=== PATIENT | male | born 1980 | race African-American/Black ===

== ENCOUNTER 2018-01-09 19:35 | Emergency (ER) | payer SELFPAY ==
[~2018-01-09] VITALS: Ht 167.6 cm; Wt 73.2 kg
[~2018-01-09 19:35] MED LIST: HUMIBIDDM PO; ZOFR4TAB3 SL
--- NOTE | 2018-01-09 19:41 | PD ---
HPI Chief Complaint: Intoxication Time Seen by Provider: 19:37 Travel History International Travel<30 days: No Contact w/Intl Traveler<30days: No Traveled to known affect area: No History of Present Illness HPI 37-year-old male was brought in by EMS for intoxication. Patient states that he drank alcohol this afternoon. Patient denies any headache. Patient denies any neck pain. Patient denies any chest pain or shortness of breath. Patient denies abdominal pain. Patient denies any focal weakness or numbness of the extremity. Patient denies any injury. Patient denies any illicit drug abuse. Patient denies any medical problem. Patient stated he is not on any routine medication. PFS Social History Alcohol Use: No Tobacco Use: Yes Allergies-Medications Reported Meds & Prescriptions Reported Meds & Active Scripts Active Mucinex DM (Dextromethorphan-Guaifenesin) 30-600 Mg Tab 2 Tab PO BID PRN 7 Days Zofran Odt (Ondansetron Odt) 4 Mg Tab 4 Mg SL Q6HR PRN Review of Systems General / Constitutional: No: Fever Eyes: No: Visual changes HENT: No: Headaches Cardiovascular: No: Chest Pain or Discomfort Respiratory: No: Shortness of Breath Gastrointestinal: No: Abdominal Pain Genitourinary: No: Dysuria Musculoskeletal: No: Pain Skin: No Rash Neurologic: No: Weakness Psychiatric: No: Depression Endocrine: No: Polydipsia Hematologic/Lymphatic: No: Easy Bruising Physical Exam Narrative GENERAL: Well-nourished, well-developed patient. SKIN: Focused skin assessment warm/dry. HEAD: Normocephalic. EYES: No scleral icterus. No injection or drainage. NECK: Supple, trachea midline. No JVD or lymphadenopathy. CARDIOVASCULAR: Regular rate and rhythm without murmurs, gallops, or rubs. RESPIRATORY: Breath sounds equal bilaterally. No accessory muscle use. GASTROINTESTINAL: Abdomen soft, non-tender, nondistended. MUSCULOSKELETAL: No cyanosis, or edema. BACK: Nontender without obvious deformity. No CVA tenderness. Neurologic exam: Patient is intoxicated however answer questions appropriately. Patient moves all extremity well. No obvious focal neurological deficit. Data Data Last Documented VS Vital Signs Date Time Temp Pulse Resp B/P (MAP) Pulse Ox O2 Delivery O2 Flow Rate FiO2 01/09/18 19:40 100 Room Air 01/09/18 19:40 18 Orders Orders Complete Blood Count With Diff (01/09/18 19:37) Comprehensive Metabolic Panel (01/09/18 19:37) Iv Access Insert/Monitor (01/09/18 19:37) Ecg Monitoring (01/09/18 19:37) Oximetry (01/09/18 19:37) Alcohol (Ethanol) (01/09/18 19:37) Labs Laboratory Tests Test 01/09/18 20:00 White Blood Count 7.3 TH/MM3 Red Blood Count 5.05 MIL/MM3 Hemoglobin 16.4 GM/DL Hematocrit 49.5 % Mean Corpuscular Volume 97.9 FL Mean Corpuscular Hemoglobin 32.5 PG Mean Corpuscular Hemoglobin Concent 33.2 % Red Cell Distribution Width 13.2 % Platelet Count 238 TH/MM3 Mean Platelet Volume 8.1 FL Neutrophils (%) (Auto) 53.7 % Lymphocytes (%) (Auto) 38.1 % Monocytes (%) (Auto) 6.5 % Eosinophils (%) (Auto) 0.6 % Basophils (%) (Auto) 1.1 % Neutrophils # (Auto) 3.9 TH/MM3 Lymphocytes # (Auto) 2.8 TH/MM3 Monocytes # (Auto) 0.5 TH/MM3 Eosinophils # (Auto) 0.0 TH/MM3 Basophils # (Auto) 0.1 TH/MM3 CBC Comment DIFF FINAL Differential Comment Blood Urea Nitrogen 6 MG/DL Creatinine 0.85 MG/DL Random Glucose 72 MG/DL Total Protein 9.0 GM/DL Albumin 4.2 GM/DL Calcium Level 8.8 MG/DL Alkaline Phosphatase 59 U/L Aspartate Amino Transf (AST/SGOT) 44 U/L Alanine Aminotransferase (ALT/SGPT) 30 U/L Total Bilirubin 0.2 MG/DL Sodium Level 141 MEQ/L Potassium Level 3.9 MEQ/L Chloride Level 107 MEQ/L Carbon Dioxide Level 25.1 MEQ/L Anion Gap 9 MEQ/L Estimat Glomerular Filtration Rate 123 ML/MIN Ethyl Alcohol Level 388 MG/DL [facility] Medical Decision Making Medical Screen Exam Complete: Yes Emergency Medical Condition: Yes Interpretation(s) 2043 PM. CBC within normal limits. CMP within normal limits. AST 44. Glucose 72. Alcohol 388. Differential Diagnosis Differential diagnosis including alcohol intoxication, electrolyte imbalance, substance-induced mood disorder. Narrative Course 37-year-old male was brought in for intoxication. 2045 PM. Patient is awake alert oriented 3. Patient steady on his feet. Patient will be discharged to the custody of family members. Diagnosis Primary Impression: Alcohol intoxication Qualified Codes: F10.920 - Alcohol use, unspecified with intoxication, uncomplicated Patient Instructions: General Instructions Additional Instructions: Advised [facility]. Med/Other Pt SpecificInfo: No Meds Exist/No RX given Disposition: 01 DISCHARGE HOME Condition: Stable Shade Maza MD Jan 09, 2018 19:41
[2018-01-09 20:10] LABS: AUTOMATED NEUTROPHIL # 3.9 TH/MM3 (1.8-7.7); BASOPHIL # 0.1 TH/MM3 (0-0.2); BASOPHIL % 1.1 % (0.0-2.0); EOSINOPHIL % 0.6 % (0.0-4.0); HEMATOCRIT 49.5 % (39.0-51.0); HEMOGLOBIN 16.4 GM/DL (13.0-17.0); LYMPH % 38.1 % (9.0-44.0); LYMPHOCYTE # 2.8 TH/MM3 (1.0-4.8); MEAN CELL VOLUME 97.9 FL (80.0-100.0); MEAN CORPUSCULAR HEMOGLOBIN 32.5 PG (27.0-34.0); MEAN CORPUSCULAR HGB CONC 33.2 % (32.0-36.0); MEAN PLATELET VOLUME 8.1 FL (7.0-11.0); MONO % 6.5 % (0.0-8.0); MONOCYTE # 0.5 TH/MM3 (0-0.9); NEUT % 53.7 % (16.0-70.0); PLATELET COUNT 238 TH/MM3 (150-450); RED BLOOD COUNT 5.05 MIL/MM3 (4.50-5.90); RED CELL DISTRIBUTION WIDTH 13.2 % (11.6-17.2); WHITE BLOOD COUNT 7.3 TH/MM3 (4.0-11.0)
[2018-01-09 20:18] LABS: CHLORIDE 107 MEQ/L (98-107); SODIUM (NA) 141 MEQ/L (136-145)
[2018-01-09 20:21] LABS: ALBUMIN 4.2 GM/DL (3.4-5.0); BICARBONATE 25.1 MEQ/L (21.0-32.0); CALCIUM 8.8 MG/DL (8.5-10.1); GLUCOSE,RANDOM 72 MG/DL (74-106)
[2018-01-09 20:22] LABS: BLOOD UREA NITROGEN 6 MG/DL (7-18)
[2018-01-09 20:24] LABS: ALT (GPT) 30 U/L (12-78)
[2018-01-09 20:25] LABS: AST (GOT) 44 U/L (15-37); CREATININE 0.85 MG/DL (0.60-1.30); GLOMERULAR FILTRATION RATE 123 ML/MIN (>89)
[2018-01-09 20:26] LABS: TOTAL BILIRUBIN ADULT 0.2 MG/DL (0.2-1.0)
[2018-01-09 20:27] LABS: ALKALINE PHOSPHATASE 59 U/L (45-117)
[2018-01-09 23:39] VITALS: BP 136/82; PULSE 74; RESP 16; O2SAT 100
[2018-01-10 01:50] VITALS: BP 158/78; PULSE 87; RESP 16; O2SAT 99
[2018-01-10 03:35] VITALS: BP 138/77; PULSE 78; RESP 16
[2018-01-10 05:55] VITALS: BP 142/77; PULSE 78; RESP 16; O2SAT 100
== END 2018-01-10 06:00 | disposition home or self-care (01) ==
LOC: PHED 19:35
DX: F10.920 Alcohol use, unspecified with intoxication, uncomplicated (principal); Y90.8 Blood alcohol level of 240 mg/100 ml or more; Z72.0 Tobacco use
CPT/HCPCS: 80053; 80307; 85025; 99283

== ENCOUNTER 2018-04-05 09:05 | Inpatient (IN) | payer OTHER ==
[~2018-04-05] VITALS: Ht 167.6 cm; Wt 61.0 kg
[~2018-04-05 09:05] MED LIST changes: +NAPR500 PO
[2018-04-05 12:00] VITALS: BP 155/111; PULSE 70; RESP 20; TEMP 98.1; O2SAT 98
[2018-04-05] MEDS ORDERED: BISACODYL 10 MG SUPP RECTAL PRN (12:15)
[2018-04-05] MEDS: MAGNESIUM HYDROXIDE SUSP 30 ML CUP PO SCH ×2 (12:15→20:40)
[2018-04-05] MEDS ORDERED: ENALAPRILAT 1.25 MG/ML VIAL IV PUSH PRN (12:15)
[2018-04-05] MEDS ORDERED: SENNOSIDES 8.6 MG TAB PO PRN (12:15)
[2018-04-05] MEDS ORDERED: LACTULOSE SYRUP 20 GM/30 ML CUP PO PRN (12:15)
[2018-04-05] MEDS ORDERED: ONDANSETRON HCL 4 MG/2 ML VIAL IV PUSH PRN (12:15)
[2018-04-05] MEDS ORDERED: SODIUM CHLORIDE 0.9% FLUSH 10 ML FLUSH IV FLUSH PRN (12:15)
[2018-04-05] MEDS: MORPHINE SULFATE 4 MG/ML INJ IV PUSH PRN ×3 (13:12→22:49)
[2018-04-05] MEDS: SODIUM CHLOR 0.9% 1000 ML INJ 1,000 ML IV SCH ×2 (13:24→20:45)
[2018-04-05] MEDS ORDERED: MORPHINE SULFATE 4 MG/ML INJ IV ONE (14:00)
--- NOTE | 2018-04-05 14:13 | RADRPT ---
EXAM DATE: 04/05/2018 2:02 PM EDT AGE/SEX: 37 years / Male INDICATIONS: Trauma. Severe burning pain bilateral upper extremities. CLINICAL DATA: This is the patient's initial encounter. Patient reports that signs and symptoms have been present for 2 days and indicates a pain score of 3/10. MEDICAL/SURGICAL HISTORY: None. None. COMPARISON: No prior exams available for comparison. TECHNIQUE: Multiplanar, multisequence MRI examination of the cervical spine was performed without co ntrast. FINDINGS: At C2-3 there is no significant abnormality. At C3-4 there is a broad-based posterior disc protrusion with mild to moderate AP canal stenosis and mild cord compression. Mild foraminal stenosis. At C4-5 there is a broad-based disc protrusion, slightly worse on the left side with moderate AP maria g l stenosis, mild cord compression and bilateral foraminal encroachment, worse on the left. At C5-6 there is a disc bulge or mild protrusion effacing the anterior thecal sac with a minimal impr ession on the anterior surface of the cord. At C6-7 there is a broad-based disc protrusion with mild to moderate AP canal stenosis and mild cord compression as well as bilateral foraminal stenosis. At C7-T1 there is no significant abnormality. CONCLUSION: 1. At C3-4-5 and C6-7 there is a broad-based disc protrusion with mild to moderate AP canal stenosis and mild cord compression as well as bilateral foraminal encroachment. No cord signal abnormality. N ormal alignment. Electronically signed by: Daniel Keys MD 04/05/2018 2:12 PM EDT
[2018-04-05] MEDS: GABAPENTIN 300 MG CAP PO SCH ×2 (14:14→18:17)
[2018-04-05 16:00] VITALS: BP 175/100; PULSE 62; RESP 20; TEMP 97.8; O2SAT 100
[2018-04-05] MEDS: ACETAMINOPHEN 1000 MG/100 ML 100 ML IV SCH ×2 (16:06→20:39)
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
[2018-04-05] MEDS: FAMOTIDINE 20 MG TAB PO SCH (20:40)
[2018-04-05] MEDS: AMITRIPTYLINE HCL 25 MG TAB PO SCH (20:40)
[2018-04-05] MEDS: DOCUSATE SODIUM 50 MG/SENNA 8.6 MG TAB PO SCH (20:40)
[2018-04-05 20:44] VITALS: BP 159/95; PULSE 57; RESP 20; TEMP 97.6; O2SAT 97
[2018-04-06] VITALS (7 sets, daily range): BP systolic 147–178; BP diastolic 89–100; PULSE 61–114; RESP 18–20; TEMP 97.7–98.3; O2SAT 94–97
[2018-04-06] MEDS: MORPHINE SULFATE 4 MG/ML INJ IV PUSH PRN ×3 (02:55→17:20)
[2018-04-06] MEDS: ACETAMINOPHEN 1000 MG/100 ML 100 ML IV SCH ×2 (02:55→09:31)
[2018-04-06] MEDS: SODIUM CHLOR 0.9% 1000 ML INJ 1,000 ML IV SCH ×2 (08:04→22:05)
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
[2018-04-06] MEDS: DOCUSATE SODIUM 50 MG/SENNA 8.6 MG TAB PO SCH ×2 (09:27→21:00)
[2018-04-06] MEDS: MAGNESIUM HYDROXIDE SUSP 30 ML CUP PO SCH ×2 (09:27→21:00)
[2018-04-06] MEDS: FAMOTIDINE 20 MG TAB PO SCH ×2 (09:27→22:03)
[2018-04-06] MEDS: GABAPENTIN 300 MG CAP PO SCH ×3 (09:27→22:07)
--- NOTE | 2018-04-06 12:34 | HHI.NSPN ---
(Navneet Kirk) History Chief Complaint: Burning and tingling to forearms and hands, not able to use. (Navneet Kirk) Interval History 04/05: The patient is a 37-year-old male presented to the emergency room in [facility] early this morning following a fall while intoxicated. He reportedly initially complained of neck pain. He was diagnosed with a C7 spinous process and lamina fracture with CT scan head negative. The patient was transferred to general surgery trauma service at [facility]. He continues to complain of burning sensation in his forearms and hands diffuse. 04/06: The patient is awake and alert in bed when seen this afternoon. He complains of a burning and "needles" sensation from the forearms down to the fingertips of both upper extremities. He states it is very painful if something brushes up against the area. He also says he is not able to use the hands to write or do anything. He denies any neck pain or any pain, numbness, tingling or weakness to the lower extremities. Upon examination he has tenderness to the lower midline cervical spine. He has pain to touch of the upper extremities. His proximal upper extremity muscle strength is strong but distal is not tested due to pain to touch. There are no sensorimotor deficits to the lower extremities. He is wearing the [place] cervical collar. He reports that he has been able to void. (Navneet Kirk) Exam Results 04/04/18 04/04/18 04/05/18 04/05/18 04/06/18 04/06/18 06:00 18:00 06:00 18:00 06:00 18:00 Intake Total 400 ml Output Total 300 ml Balance 400 ml -300 ml Intake IV Total 400 ml Output Urine Total 300 ml Bladder Scan Volume Amount 475 ml Vital Signs Date Time Temp Pulse Resp B/P (MAP) Pulse Ox O2 Delivery O2 Flow Rate FiO2 04/06/18 12:03 98.2 70 18 155/97 (116) 95 04/06/18 10:01 18 04/06/18 09:29 17 04/06/18 07:45 97.9 75 18 147/99 (115) 94 04/06/18 05:00 97.8 61 20 169/95 (119) 97 04/06/18 00:45 97.7 77 20 170/89 (116) 96 04/05/18 20:44 97.6 57 20 159/95 (116) 97 04/05/18 16:00 97.8 62 20 175/100 (125) 100 04/05/18 12:00 98.1 70 20 155/111 (126) 98 (Navneet Kirk) Physical Examination GENERAL: Awake & alert in bed. Affect normal. Readily interacts. No apparent distress. Mildly uncomfortable due to pain to BUE. SKIN: Multiple abrasions to face and hands. HEENT: Normocephalic. Right forehead abrasion. Right-sided lip swelling & abrasions. PERRLA, EOMI. No evident otorrhea or rhinorrhea. MMM & pink, tongue midline to protrusion. NECK: In [place] cervical collar. TTP at midline C5 to T1. No JVD. Trachea midline. MUSCULOSKELETAL: HARRINGTON spontaneously & purposefully but decreased ROM to distal BUE. TTP from distal right arm to fingertips and from mid left forearm to fingertips. BLE NTTP. NEUROLOGICAL: AAOx3. Speech clear & appropriate. Follows simple commands w/o difficulty. CN II through XII appear grossly intact. Positive paresthesias and dysesthesia to light touch from distal right arm to fingertips and from mid left forearm to fingertips. Sensation is intact to light touch to the lower extremities. Motor strength is 5/5 to bilateral deltoids, biceps & tricep and to all major flexion & extension muscle groups of the BLE. Unable to assess wrist flexors & extensors or hand intrinsics due to pain when touched. (Navneet Kirk) Lab, Micro, Other Results Recent Impressions Cervical Spine MRI 04/05/18 0000 Signed Impressions: CONCLUSION: 1. At C3-4-5 and C6-7 there is a broad-based disc protrusion with mild to mode rate AP canal stenosis and mild cord compression as well as bilateral foraminal encroachment. No cord signal abnormality. Normal alignment. (Navneet Kirk) Medical Decision Making Impression and Plan Impression: 1. Moderately severe diffuse cervical stenosis, C3 through C7 levels related to chronic degenerative changes 2. Acute cervical cord contusion primarily C3-4 greater than C4-5 level noted on MRI imaging 3. Central cord syndrome 4. Alcohol intoxication Patient is doing fairly well. He continues to have paresthesias and dysesthesia to the upper extremities with decreased use of the distal upper extremities. Since admission: Afebrile. SBP intermittently elevated. Per Dr Dean: "04/05/2018 cervical spine MRI images reviewed. There is moderately severe diffuse stenosis at the C3-4 and C4-5 greater than C5 -6 and C6-7 levels related primarily to significant posterior osteophytic disc complex impinging on the anterior cord. Positive increased signal intensity within the cord at the C3-4 greater than C4- 5 level consistent with contusion. 04/05/2018 CT scan cervical spine images are reviewed and reveal a C7 spinous process fracture extending to the lower lamina, mildly displaced. Moderate posterior osteophytic disc complex throughout the mid cervical spine levels. No evidence of subluxation or instability.. 04/05/2018 CT scan head images are within normal limits without evidence of acute injury." Plan: Neuro checks q4h. [place] cervical collar at all times. Maintain MAP preferably greater than 65. Elevated HOB. Bedrest. Physical & Occupational Therapy eval & tx. Hold pharmacologic DVT prophylaxis. Mechanical DVT prophylaxis. Stress ulcer prophylaxis. Gabapentin & amitriptyline for dysesthetic pain. Plan to take the patient for spinal cord decompression w/probable C3-C7 laminoplasty in order to avoid multilevel fusion in this relatively young patient. BMP & CBC in AM. NPO after midnight tonight. Will accept transfer of patient to Neurosurgery service. (Navneet Kirk) Attending Statement The exam, history, and the medical decision-making described in the above note were completed with the assistance of the mid-level provider. I reviewed and agree with the findings presented. I attest that I had a [id number] encounter with the patient on the same day, and personally performed and documented my assessment and findings in the medical record. The imaging findings were discussed at length with the patient again today. Due to the severity of cord compression and contusion, it is recommended the patient proceed with cervical laminoplasty, decompressive semi-laminectomy. The procedure, risks, possible complications including risk of anesthesia, spinal cord or nerve damage, hematoma formation, failure of instrumentation or fusion of all been fully discussed. I advised him that prognosis for recovery of cervical cord contusion is moderate. He appears to understand all of the above and wishes to proceed with surgery which is tentatively scheduled for 04/07/2018 (Chuck Dean MD) Navneet Kirk Apr 06, 2018 12:34 Chuck Dean MD Apr 07, 2018 13:31
[2018-04-06] MEDS: ACETAMINOPHEN 325 MG TAB PO SCH ×2 (15:15→22:04)
[2018-04-06] MEDS: AMITRIPTYLINE HCL 25 MG TAB PO SCH (22:01)
[2018-04-07] VITALS: BP 154/93; PULSE 69; RESP 18; TEMP 97.8; O2SAT 95
[2018-04-07] MEDS: ACETAMINOPHEN 325 MG TAB PO SCH ×4 (03:00→20:42)
[2018-04-07 04:00] VITALS: BP 139/87; PULSE 73; RESP 18; TEMP 97.7; O2SAT 97
[2018-04-07] MEDS: SODIUM CHLOR 0.9% 1000 ML INJ 1,000 ML IV SCH ×2 (04:11→14:04)
[2018-04-07 04:40] LABS: AUTOMATED NEUTROPHIL # 3.4 TH/MM3 (1.8-7.7); BASOPHIL % 0.4 % (0.0-2.0); EOSINOPHIL # 0.1 TH/MM3 (0-0.4); HEMATOCRIT 40.8 % (39.0-51.0); HEMOGLOBIN 14.3 GM/DL (13.0-17.0); LYMPH % 30.1 % (9.0-44.0); LYMPHOCYTE # 1.8 TH/MM3 (1.0-4.8); MEAN CELL VOLUME 97.2 FL (80.0-100.0); MEAN PLATELET VOLUME 8.6 FL (7.0-11.0); MONO % 11.5 % (0.0-8.0); MONOCYTE # 0.7 TH/MM3 (0-0.9); PLATELET COUNT 192 TH/MM3 (150-450); RED CELL DISTRIBUTION WIDTH 12.3 % (11.6-17.2); WHITE BLOOD COUNT 6.1 TH/MM3 (4.0-11.0)
[2018-04-07] MEDS ORDERED: SODIUM CHLORID 0.9% 500 ML IV PRN (04:45)
[2018-04-07] MEDS ORDERED: METOPROLOL TARTRATE 25 MG TAB PO PRN (04:45)
[2018-04-07] MEDS ORDERED: POVIDONE IODINE 5% (ANTISEPSIS KIT) 4 APPLICATIONS EACH NARE PRN (04:45)
[2018-04-07] MEDS ORDERED: CHLORHEXIDINE GLUCONATE 2 % 1 PACK (2 CLOTHS) TOPICAL PRN (04:45)
[2018-04-07] MEDS ORDERED: LACTATED RINGER'S 1000 ML IV PRN (04:45)
[2018-04-07 04:59] LABS: BICARBONATE 27.5 MEQ/L (21.0-32.0); CALCIUM 8.4 MG/DL (8.5-10.1); CREATININE 0.95 MG/DL (0.60-1.30)
[2018-04-07] MEDS ORDERED: LIDOCAINE 1%/EPINEPHrine 1:100,000 SOLN 20 ML VIAL ONE (06:57)
[2018-04-07] MEDS ORDERED: GENTAMICIN SULFATE 80 MG/2 ML VIAL ONE (06:57)
[2018-04-07] MEDS ORDERED: GELFOAM SIZE 100 ONE (06:57)
[2018-04-07] MEDS ORDERED: THROMBIN (TOPICAL) 5,000 UNIT VIAL ONE (06:57)
[2018-04-07] MEDS ORDERED: KETAMINE HCL 50 MG/5 ML SYRINGE ONE ×2 (07:17→07:22)
[2018-04-07] MEDS ORDERED: PROPOFOL 500 MG/50 ML INJ 150 ML ONE (07:18)
[2018-04-07] MEDS: FAMOTIDINE 20 MG TAB PO SCH ×2 (09:00→20:42)
[2018-04-07] MEDS: DOCUSATE SODIUM 50 MG/SENNA 8.6 MG TAB PO SCH ×2 (09:00→20:42)
[2018-04-07] MEDS: MAGNESIUM HYDROXIDE SUSP 30 ML CUP PO SCH ×2 (09:00→20:40)
[2018-04-07] MEDS: GABAPENTIN 300 MG CAP PO SCH ×3 (09:00→17:24)
[2018-04-07 12:00] VITALS: BP 142/100; PULSE 95; RESP 18; TEMP 98.3; O2SAT 97
[2018-04-07] MEDS ORDERED: ONDANSETRON HCL 4 MG/2 ML VIAL IV ONE (12:00)
[2018-04-07] MEDS ORDERED: ceFAZolin INJ 1,000 MG VIAL IV ONE (12:00)
[2018-04-07] MEDS ORDERED: ePHEDrine/NS 25 MG/5 ML SYRINGE IV ONE (12:00)
[2018-04-07] MEDS ORDERED: DEXAMETHASONE SOD PHOS 4 MG/ML VIAL IV ONE (12:00)
[2018-04-07] MEDS ORDERED: PHENYLEPH/NS 1000 MCG/10 ML SYR IV ONE (12:00)
[2018-04-07] MEDS ORDERED: PHENYLEPHRINE HCL 10 MG/ML VIAL IV ONE (12:00)
[2018-04-07] MEDS ORDERED: LIDOCAINE HCL 1% PF 5 ML SYRINGE OTHER ONE (12:00)
[2018-04-07] MEDS ORDERED: PROPOFOL 200 MG/20 ML AMP IV ONE (12:00)
[2018-04-07] MEDS ORDERED: LACTATED RINGER'S 1000 ML INJ 1,000 ML IV ONE (12:00)
--- NOTE | 2018-04-07 13:24 | PD.OP ---
Operative Report Date of Surgery: Apr 07, 2018 Preoperative Diagnosis: (1) Contusion of cervical cord (2) Cervical spinal cord compression (3) C7 cervical fracture 1. Cervical stenosis with spinal cord compression 2. Cervical cord contusion, C3-4, C4-5 levels 3. C7 fracture Postoperative Diagnosis: (1) Contusion of cervical cord (2) Cervical spinal cord compression (3) C7 cervical fracture 1. Cervical stenosis with spinal cord compression 2. Cervical cord contusion, C3-4, C4-5 levels 3. C7 fracture Procedure: 1. C4, C5, C6 laminoplasty, allograft bone, DBM, titanium plates and screws. 2. C3 and C7 decompressive semi-laminectomy Anesthesia: General Surgeon: Chuck Dean Child Care Specialist(s): Yvon Rodriguez Operation and Findings: Indications: 37-year-old male with upper cervical cord contusion following traumatic injury. Preoperative MRI with pre-existing cervical spondylosis and degenerative disc disease, probable chronic congenital and acquired stenosis. Positive cord contusion C3-4, C4-5 levels with significant stenosis 5 6 and C6- 7. Findings: Significant canal stenosis. Relatively stable C7 spinous process fracture Procedure in detail: The patient was brought into the operating room and general endotracheal anesthesia induced without difficulty. Lines were established by anesthesia Knee high sequential compression devices were placed Appropriate timeout procedure was performed with all personnel present and in agreement The Alberto 3 point fixation device was placed. The patient was in a cervical collar for positioning Leads for intraoperative neuro monitoring were placed in a baseline study obtained The patient was turned into prone position on the 3080 table on the Brennon frame with the undersigned maintaining control of the head and neck. The head and neck were secured to the operating room table with the Alberto adapter with the neck slightly flexed with 3-4 fingerbreadths between the chin and chest. The neck position was checked with intraoperative C-arm and felt to be satisfactory. The cervical collar was removed. All extremities were appropriately padded. The back of the head and neck were shaved with clippers and sterilely prepped and draped. 1% Xylocaine with epinephrine was used for local infiltration over the incision site was made in the midline posterior neck and carried sharply down to the spinous processes of . The microscope was used as needed during the decompression and graft and plate placement portion of the procedure.. On the right side, the muscle attachments were mostly left in place to the spinous process and the midline supraspinous ligament was left intact, and the Chaudhari elevator was used to expose the junction of the lamina and facet at the C3 through C7 levels. On the right side, the TPS drill with the M8 jacquelyn was used to incise a trough in the dorsal cortical bone at the C4 through C6 levels. On the left side the posterior muscle attachments and fascia were incised with the Bovie and elevated away from the lamina and facet and spinous processes at the C3 through C7 levels On the left side. The TPS drill with the M8 jacquelyn was used to drill a thin trough through both the dorsal and ventral cortical bone at the junction of the lamina and facet at the C4 through C6 levels. A thin remaining shell of bone at the ventral lamina was removed with the 1 and 2 mm Kerrison rongeur. The lamina bending roll hand was then used to elevate the left lamina away from the facet , creating a partial fracture through the lamina on the right side. The sizers were used to determine the size of the precut allograft bone to be placed at the left C4 through C6 lamina-facet interspace. Prior to placement of the laminoplasty graft and plate, the inferior ventral C3 and superior ventral C7 lamina were removed with the TPS drill and the Kerrison rongeur to further decompress the dura at these levels. The prepared allografts were then placed between the elevated laminar edge and decorticated facet at the left C4 through C6 levels, with the Synthes titanium laminoplasty plates pre- attached to the graft with 6 mm screws. The 4 through 6 mm screws were then used as needed to secure the laminoplasty plates to the edge of the lamina and through the facet and lateral mass at the left C4 through C6 levels. The entire construct was checked with intraoperative C-arm and also visualized under the microscope. The thin ligament dissector and blunt hook were used to carefully probe beneath the elevated lamina to ensure adequate decompression of the thecal sac. Care was taken to make sure that the edge of the lamina on the right side was not depressed into the spinal canal. The region was well irrigated with antibiotic irrigation. Bleeding was carefully controlled with bipolar forceps A 7 mm flat fluted drain was left at the operative site and brought out through an incision in the upper thoracic region and secured to the skin with nylon suture The closure was performed with 0 Vicryl interrupted for the deep and superficial fascia with 3-0 Vicryl interrupted subcutaneous closure and 4-0 Vicryl subcutaneous closure. A dressing of sterile Mastisol and Steri-Strips and a Primapore dressing was placed. The patient was placed back in a cervical collar and released from the Dunlo adapter and turned back into supine position on the recovery room bed. The Alberto 3 point fixation device was then removed. The patient was taken to recovery room in stable condition All counts were correct at the end of the case. Estimated blood loss was 200 cc No specimen was sent to pathology Neural monitoring remained stable during the procedure Chuck Dean MD Apr 07, 2018 13:24
[2018-04-07] MEDS ORDERED: DO NOT ADM ANY ANTICOAGULANT DRUGS PRN (13:30)
[2018-04-07] MEDS ORDERED: MIDAZOLAM HCL 2 MG/2 ML VIAL ONE (13:41)
[2018-04-07] MEDS: 1/2 NS + KCL 20 MEQ INJ 1,000 ML IV SCH ×2 (13:43→23:43)
[2018-04-07 16:00] VITALS: BP 131/98; PULSE 78; RESP 18; TEMP 97.8; O2SAT 99
--- NOTE | 2018-04-07 17:17 | RADRPT ---
EXAM DATE: 04/07/2018 5:00 PM EDT AGE/SEX: 37 years / Male INDICATIONS: C3-6 Posterior fusion. CLINICAL DATA: This is the patient's subsequent encounter. Patient reports that signs and symptoms h ave been present for 3 days and indicates a pain score of Nonresponsive. MEDICAL/SURGICAL HISTORY: . Smoker. None. COMPARISON: No prior exams available for comparison. FINDINGS: Single lateral view of the cervical spine demonstrates small posterior fixation devices along the pos terior elements at the C4-C6 levels. Anterior surgical drain is noted. Cervical alignment is well-maintained. CONCLUSION: Satisfactory appearance of the cervical spine following posterior fusion from C4 through C6. Electronically signed by: Chris Palacios MD 04/07/2018 5:16 PM EDT
[2018-04-07] MEDS: MORPHINE SULFATE 4 MG/ML INJ IV PUSH PRN (17:24)
[2018-04-07 20:00] VITALS: BP 142/88; PULSE 84; RESP 20; TEMP 98.3
[2018-04-07] MEDS: AMITRIPTYLINE HCL 25 MG TAB PO SCH (20:43)
[2018-04-08] VITALS: BP 157/98; PULSE 73; RESP 20; TEMP 96.8; O2SAT 99
[2018-04-08] MEDS: SODIUM CHLOR 0.9% 1000 ML INJ 1,000 ML IV SCH ×3 (00:22→20:04)
[2018-04-08] MEDS: ACETAMINOPHEN 325 MG TAB PO SCH ×4 (04:08→22:23)
[2018-04-08 07:18] LABS: AUTOMATED NEUTROPHIL # 7.1 TH/MM3 (1.8-7.7); BASOPHIL # 0.1 TH/MM3 (0-0.2); BASOPHIL % 0.8 % (0.0-2.0); EOSINOPHIL % 0.4 % (0.0-4.0); HEMATOCRIT 35.5 % (39.0-51.0); HEMOGLOBIN 12.5 GM/DL (13.0-17.0); LYMPH % 18.2 % (9.0-44.0); LYMPHOCYTE # 1.8 TH/MM3 (1.0-4.8); MEAN CELL VOLUME 98.1 FL (80.0-100.0); MEAN CORPUSCULAR HEMOGLOBIN 34.5 PG (27.0-34.0); MEAN CORPUSCULAR HGB CONC 35.2 % (32.0-36.0); MEAN PLATELET VOLUME 9.2 FL (7.0-11.0); MONO % 10.2 % (0.0-8.0); NEUT % 70.4 % (16.0-70.0); PLATELET COUNT 187 TH/MM3 (150-450); RED BLOOD COUNT 3.61 MIL/MM3 (4.50-5.90); RED CELL DISTRIBUTION WIDTH 12.1 % (11.6-17.2); WHITE BLOOD COUNT 10.1 TH/MM3 (4.0-11.0)
[2018-04-08 07:35] LABS: BICARBONATE 28.1 MEQ/L (21.0-32.0); CALCIUM 8.3 MG/DL (8.5-10.1); CREATININE 0.71 MG/DL (0.60-1.30)
[2018-04-08 08:00] VITALS: BP 156/102; PULSE 64; RESP 20; TEMP 97.7; O2SAT 98
[2018-04-08] MEDS: MAGNESIUM HYDROXIDE SUSP 30 ML CUP PO SCH ×2 (09:00→21:00)
[2018-04-08] MEDS: DOCUSATE SODIUM 50 MG/SENNA 8.6 MG TAB PO SCH ×2 (09:00→21:00)
[2018-04-08] MEDS: GABAPENTIN 300 MG CAP PO SCH ×3 (09:33→18:00)
[2018-04-08] MEDS: FAMOTIDINE 20 MG TAB PO SCH ×2 (09:34→22:23)
[2018-04-08] MEDS: 1/2 NS + KCL 20 MEQ INJ 1,000 ML IV SCH ×2 (09:41→16:54)
[2018-04-08 12:32] VITALS: BP 153/89; PULSE 74; RESP 20; TEMP 98.1; O2SAT 98
[2018-04-08 16:00] VITALS: BP 150/94; PULSE 72; RESP 20; TEMP 97.3; O2SAT 99
--- NOTE | 2018-04-08 19:45 | HHI.NSPN ---
History Chief Complaint: Burning and tingling to forearms and hands, not able to use. Interval History 04/07/2018: C4-6 laminoplasty with C3, C7 decompressive semi-laminectomy for severe cervical stenosis with spinal cord contusion 04/08/2018: Exam significantly improved compared to preoperative. Ambulated 120 feet with physical therapy. Improvement in upper extremity hand movement and coordination with Occupational Therapy. Tolerating diet Exam Results Vital Signs Date Time Temp Pulse Resp B/P (MAP) Pulse Ox O2 Delivery O2 Flow Rate FiO2 04/08/18 16:00 97.3 72 20 150/94 (112) 99 04/07/18 14:10 Nasal Cannula 2 Intake and Output 04/08/18 04/08/18 04/09/18 08:00 16:00 00:00 Intake Total 570 ml 580 ml Output Total 1240 ml 350 ml Balance -670 ml 580 ml -350 ml Physical Examination GENERAL: Awake & alert in bed. Affect normal. Readily interacts. No apparent distress. Mildly uncomfortable due to pain to BUE. SKIN: Multiple abrasions to face and hands. HEENT: Normocephalic. Right forehead abrasion. Right-sided lip swelling & abrasions. PERRLA, EOMI. No evident otorrhea or rhinorrhea. MMM & pink, tongue midline to protrusion. NECK: In [place] J cervical collar with posterior dressing dry and intact MUSCULOSKELETAL: H[place] spontaneously & purposefully but decreased ROM to distal BUE. TTP from distal right arm to fingertips and from mid left forearm to fingertips. BLE NTTP. NEUROLOGICAL: AAOx3. Speech clear & appropriate. Follows simple commands w/o difficulty. CN II through XII appear grossly intact. Positive paresthesias and dysesthesia to light touch from distal right arm to fingertips and from mid left forearm to fingertips. Sensation is intact to light touch to the lower extremities. Motor strength is 5/5 to bilateral deltoids, biceps & tricep and to all major flexion & extension muscle groups of the BLE. Mostly 3/5 hand intrinsics, abductor digit minimi bilateral Lab, Micro, Other Results Laboratory Tests Test 04/08/18 06:16 White Blood Count 10.1 TH/MM3 Red Blood Count 3.61 MIL/MM3 Hemoglobin 12.5 GM/DL Hematocrit 35.5 % Mean Corpuscular Volume 98.1 FL Mean Corpuscular Hemoglobin 34.5 PG Mean Corpuscular Hemoglobin Concent 35.2 % Red Cell Distribution Width 12.1 % Platelet Count 187 TH/MM3 Mean Platelet Volume 9.2 FL Neutrophils (%) (Auto) 70.4 % Lymphocytes (%) (Auto) 18.2 % Monocytes (%) (Auto) 10.2 % Eosinophils (%) (Auto) 0.4 % Basophils (%) (Auto) 0.8 % Neutrophils # (Auto) 7.1 TH/MM3 Lymphocytes # (Auto) 1.8 TH/MM3 Monocytes # (Auto) 1.0 TH/MM3 Eosinophils # (Auto) 0.0 TH/MM3 Basophils # (Auto) 0.1 TH/MM3 CBC Comment DIFF FINAL Differential Comment Blood Urea Nitrogen 6 MG/DL Creatinine 0.71 MG/DL Random Glucose 90 MG/DL Calcium Level 8.3 MG/DL Sodium Level 139 MEQ/L Potassium Level 3.9 MEQ/L Chloride Level 104 MEQ/L Carbon Dioxide Level 28.1 MEQ/L Anion Gap 7 MEQ/L Estimat Glomerular Filtration Rate 151 ML/MIN Medical Decision Making Impression and Plan Impression: 1. Neurologic exam improving steadily postoperative. Significant improvement in ambulation and upper extremity motor function and coordination. Plan: Continue PT/OT. Continue cervical collar Discontinue drain Possible inpatient rehabilitation. Chuck Dean MD Apr 08, 2018 19:45
[2018-04-08 20:00] VITALS: BP 142/83; PULSE 75; RESP 13; TEMP 97.6; O2SAT 98
[2018-04-08] MEDS: AMITRIPTYLINE HCL 25 MG TAB PO SCH (22:23)
[2018-04-09] VITALS: BP 135/66; PULSE 69; RESP 14; TEMP 97.8; O2SAT 98
[2018-04-09] MEDS: ACETAMINOPHEN 325 MG TAB PO SCH ×4 (03:00→20:53)
[2018-04-09] MEDS: SODIUM CHLOR 0.9% 1000 ML INJ 1,000 ML IV SCH ×2 (04:34→16:04)
[2018-04-09] MEDS: 1/2 NS + KCL 20 MEQ INJ 1,000 ML IV SCH ×2 (04:34→15:43)
[2018-04-09 08:39] VITALS: BP 157/93; PULSE 64; RESP 20; TEMP 98.4; O2SAT 99
[2018-04-09] MEDS: MAGNESIUM HYDROXIDE SUSP 30 ML CUP PO SCH ×2 (09:00→20:53)
[2018-04-09] MEDS: DOCUSATE SODIUM 50 MG/SENNA 8.6 MG TAB PO SCH ×2 (09:00→20:53)
[2018-04-09] MEDS: GABAPENTIN 300 MG CAP PO SCH ×3 (09:15→17:19)
[2018-04-09] MEDS: FAMOTIDINE 20 MG TAB PO SCH ×2 (09:16→20:52)
[2018-04-09 12:00] VITALS: BP 153/88; PULSE 66; RESP 20; TEMP 98; O2SAT 98
--- NOTE | 2018-04-09 12:05 | HHI.NSPN ---
History Chief Complaint: Burning and tingling to forearms and hands, not able to use. Interval History 04/05: The patient is a 37-year-old male presented to the emergency room in [facility] early this morning following a fall while intoxicated. He reportedly initially complained of neck pain. He was diagnosed with a C7 spinous process and lamina fracture with CT scan head negative. The patient was transferred to general surgery trauma service at [facility]. He continues to complain of burning sensation in his forearms and hands diffuse. 04/06: The patient is awake and alert in bed when seen this afternoon. He complains of a burning and "needles" sensation from the forearms down to the fingertips of both upper extremities. He states it is very painful if something brushes up against the area. He also says he is not able to use the hands to write or do anything. He denies any neck pain or any pain, numbness, tingling or weakness to the lower extremities. Upon examination he has tenderness to the lower midline cervical spine. He has pain to touch of the upper extremities. His proximal upper extremity muscle strength is strong but distal is not tested due to pain to touch. There are no sensorimotor deficits to the lower extremities. He is wearing the [place] cervical collar. He reports that he has been able to void. 04/07/2018: C4-6 laminoplasty with C3, C7 decompressive semi-laminectomy for severe cervical stenosis with spinal cord contusion 04/08/2018: Exam significantly improved compared to preoperative. Ambulated 120 feet with physical therapy. Improvement in upper extremity hand movement and coordination with Occupational Therapy. Tolerating diet 04/09: The patient is awake and alert in bed with his girlfriend looking at a magazine and talking when seen. He is exercising the fingers with more mobility than when seen pre-operatively. He does say that he has some numbness, tingling and a little burning sensation below the elbows to the fingertips bilaterally. He does describe a "needles" like sensation to the fingers in places to touch. He also complains of an itching sensation to the hands. Upon examination he does have decreased sensation below the elbows to the fingertips. His motor strength to the hands is mildly decreased but is normal to the remainder of the extremities. Exam Results 04/07/18 04/07/18 04/08/18 04/08/18 04/09/18 04/09/18 06:00 18:00 06:00 18:00 06:00 18:00 Intake Total 1500 ml 570 ml 580 ml Output Total 2500 ml 1260 ml 390 ml Balance -1000 ml -690 ml 190 ml Intake Oral 570 ml 580 ml IV Total 1500 ml Output Urine Total 2300 ml 1200 ml 350 ml Drainage Total 60 ml 40 ml Estimated Blood Loss 200 ml # Voids 4 3 4 2 # Bowel Movements 2 6 3 1 Vital Signs Date Time Temp Pulse Resp B/P (MAP) Pulse Ox O2 Delivery O2 Flow Rate FiO2 04/09/18 08:39 98.4 64 20 157/93 (114) 99 04/09/18 00:00 97.8 69 14 135/66 (89) 98 04/08/18 20:00 97.6 75 13 142/83 (102) 98 04/08/18 16:00 97.3 72 20 150/94 (112) 99 04/08/18 12:32 98.1 74 20 153/89 (110) 98 04/08/18 08:00 97.7 64 20 156/102 (120) 98 04/08/18 05:06 18 04/08/18 05:06 18 04/08/18 00:00 96.8 73 20 157/98 (117) 99 04/07/18 20:00 98.3 84 20 142/88 (106) 04/07/18 17:29 18 04/07/18 16:00 97.8 78 18 131/98 (109) 99 04/07/18 14:10 110 16 133/86 (102) 99 Nasal Cannula 2 04/07/18 14:00 108 16 127/87 (100) 100 Nasal Cannula 2 04/07/18 13:45 118 16 125/86 (99) 100 Nasal Cannula 2 04/07/18 13:30 110 16 139/82 (101) 100 Nasal Cannula 2 04/07/18 13:20 97.6 120 16 133/96 (108) 100 Nasal Cannula 2 04/07/18 12:00 98.3 95 18 142/100 (114) 97 04/07/18 04:00 97.7 73 18 139/87 (104) 97 04/07/18 00:00 97.8 69 18 154/93 (113) 95 04/06/18 20:00 98.0 93 18 178/100 (126) 95 04/06/18 16:21 98.3 76 18 159/90 (113) 96 Physical Examination GENERAL: Awake & alert in bed with his girlfriend talking and looking at a magazine. Affect normal. Readily interacts. No apparent distress. SKIN: Multiple abrasions to face and hands healing w/o complication. Posterior cervical surgical incision dressing intact w/o shadowing, no erythema or streaking noted. HEENT: Normocephalic. Right forehead abrasion. Right-sided lip swelling & abrasions. NECK: In [place] cervical collar. Posterior cervical surgical incision minimally TTP, dressing intact, SUKH drain to bulb suction w/serous drainage. MUSCULOSKELETAL: [place] spontaneously & purposefully. "[place]" feeling to fingers to touch, o/w extremities NTTP. NEUROLOGICAL: AAOx3. Speech clear & appropriate. Follows simple commands w/o difficulty. Positive paresthesias and dysesthesia to light touch from forearm to fingertips , otherwise sensation is intact to light touch to the lower & proximal upper extremities. Motor strength is 4 to 4+/5 to the bilateral hand intrinsics & abductor digit minimi bilateral, otherwise it is 5/5 to all major flexion & extension muscle groups of the extremities, to include wrist flexors & extensors. Lab, Micro, Other Results Recent Impressions Cervical Spine X-Ray 04/07/18 0000 Signed Impressions: CONCLUSION: Satisfactory appearance of the cervical spine following posterior fusion from C 4 through C6. Laboratory Tests Test 04/07/18 04:01 04/08/18 06:16 White Blood Count 6.1 TH/MM3 10.1 TH/MM3 Red Blood Count 4.20 MIL/MM3 3.61 MIL/MM3 Hemoglobin 14.3 GM/DL 12.5 GM/DL Hematocrit 40.8 % 35.5 % Mean Corpuscular Volume 97.2 FL 98.1 FL Mean Corpuscular Hemoglobin 34.0 PG 34.5 PG Mean Corpuscular Hemoglobin Concent 35.0 % 35.2 % Red Cell Distribution Width 12.3 % 12.1 % Platelet Count 192 TH/MM3 187 TH/MM3 Mean Platelet Volume 8.6 FL 9.2 FL Neutrophils (%) (Auto) 56.0 % 70.4 % Lymphocytes (%) (Auto) 30.1 % 18.2 % Monocytes (%) (Auto) 11.5 % 10.2 % Eosinophils (%) (Auto) 2.0 % 0.4 % Basophils (%) (Auto) 0.4 % 0.8 % Neutrophils # (Auto) 3.4 TH/MM3 7.1 TH/MM3 Lymphocytes # (Auto) 1.8 TH/MM3 1.8 TH/MM3 Monocytes # (Auto) 0.7 TH/MM3 1.0 TH/MM3 Eosinophils # (Auto) 0.1 TH/MM3 0.0 TH/MM3 Basophils # (Auto) 0.0 TH/MM3 0.1 TH/MM3 CBC Comment DIFF FINAL DIFF FINAL Differential Comment Blood Urea Nitrogen 9 MG/DL 6 MG/DL Creatinine 0.95 MG/DL 0.71 MG/DL Random Glucose 103 MG/DL 90 MG/DL Calcium Level 8.4 MG/DL 8.3 MG/DL Sodium Level 139 MEQ/L 139 MEQ/L Potassium Level 3.7 MEQ/L 3.9 MEQ/L Chloride Level 102 MEQ/L 104 MEQ/L Carbon Dioxide Level 27.5 MEQ/L 28.1 MEQ/L Anion Gap 10 MEQ/L 7 MEQ/L Estimat Glomerular Filtration Rate 108 ML/MIN 151 ML/MIN Medical Decision Making Impression and Plan Impression: 1. Moderately severe diffuse cervical stenosis, C3 through C7 levels related to chronic degenerative changes 2. Acute cervical cord contusion primarily C3-4 greater than C4-5 level noted on MRI imaging 3. Central cord syndrome 4. Alcohol intoxication Postoperative Diagnosis: (1) Contusion of cervical cord (2) Cervical spinal cord compression (3) C7 cervical fracture 1. Cervical stenosis with spinal cord compression 2. Cervical cord contusion, C3-4, C4-5 levels 3. C7 fracture Patient is doing well. He still has paresthesias and dysesthesia to the distal upper extremities but increased muscle strength of the distal upper extremities & improved fine hand movement & coordination. . Past 24 hrs: Afebrile. SUKH drain output 40 mL the past 24 hrs as of shift change this morning. POD #2 () s/p: 1. C4, C5, C6 laminoplasty, allograft bone, DBM, titanium plates and screws. 2. C3 and C7 decompressive semi-laminectomy Plan: Neuro checks q4h. [place] J cervical collar at all times. Maintain MAP preferably greater than 65. Elevated HOB. Bedrest. Physical & Occupational Therapy eval & tx. Hold pharmacologic DVT prophylaxis. Mechanical DVT prophylaxis. Stress ulcer prophylaxis. Gabapentin & amitriptyline for dysesthetic pain. Will d/c SUKH drain. Navneet Kirk [facility] Apr 09, 2018 12:05
[2018-04-09 16:00] VITALS: BP 148/96; PULSE 64; RESP 20; TEMP 97.8; O2SAT 98
[2018-04-09 20:00] VITALS: BP 180/99; PULSE 61; RESP 14; TEMP 98.1; O2SAT 99
[2018-04-09] MEDS: AMITRIPTYLINE HCL 25 MG TAB PO SCH (20:52)
[2018-04-09 22:27] VITALS: BP 160/90
[2018-04-10] VITALS: BP 120/75; PULSE 68; RESP 15; TEMP 98; O2SAT 99
[2018-04-10] MEDS: 1/2 NS + KCL 20 MEQ INJ 1,000 ML IV SCH ×2 (01:43→11:43)
[2018-04-10] MEDS: SODIUM CHLOR 0.9% 1000 ML INJ 1,000 ML IV SCH ×2 (02:04→12:04)
[2018-04-10] MEDS: ACETAMINOPHEN 325 MG TAB PO SCH ×3 (03:25→15:07)
[2018-04-10 04:00] VITALS: BP 139/83; PULSE 60; RESP 14; TEMP 98.1; O2SAT 98
[2018-04-10] MEDS: MAGNESIUM HYDROXIDE SUSP 30 ML CUP PO SCH (08:04)
[2018-04-10] MEDS: FAMOTIDINE 20 MG TAB PO SCH (08:04)
[2018-04-10] MEDS: DOCUSATE SODIUM 50 MG/SENNA 8.6 MG TAB PO SCH (08:04)
[2018-04-10] MEDS: GABAPENTIN 300 MG CAP PO SCH ×2 (08:04→12:06)
[2018-04-10 08:34] VITALS: BP 162/101; PULSE 67; RESP 18; TEMP 98.2; O2SAT 98
[2018-04-10 12:30] VITALS: BP 121/64; PULSE 65; RESP 18; TEMP 98.1; O2SAT 98
[2018-04-10 13:08] VITALS: RESP 18
[2018-04-10] MEDS ORDERED: OXYC-395 PO (13:33)
--- NOTE | 2018-04-10 13:34 | HHI.DCPOC ---
Discharge Care Plan Diagnosis: (1) Cervical spinal cord compression (2) C7 cervical fracture (3) Contusion of cervical cord Your Health Problems Are: Difficulty with ADL Incision/Drains Exercise Tolerance Loss of Movements Chronic Pain Goals to Promote Your Health * To prevent worsening of your condition and complications * To maintain your health at the optimal level Directions to Meet Your Goals Take your medications as prescribed Follow your dietary instruction Follow activity as directed Keep your appointments as scheduled Take your immunizations and boosters as scheduled If your symptoms worsen call your PCP, if no PCP go to Urgent Care Center or Emergency Room Smoking is Dangerous to Your Health. Avoid second hand smoke Call the 24-hour hour crisis hotline for domestic abuse at Chuck Dean MD Apr 10, 2018 13:34
--- NOTE | 2018-04-10 13:38 | HHI.DS ---
Discharge Summary Admission Date Apr 05, 2018 at 10:50 Discharge Date: Apr 10, 2018 Admitting Diagnosis (1) Cervical spinal cord compression Diagnosis: Secondary ICD Code: G95.20 - Unspecified cord compression Status: Acute (2) C7 cervical fracture Diagnosis: Secondary ICD Code: S12.600A - Unspecified displaced fracture of seventh cervical vertebra, initial encounter for closed fracture Status: Acute (3) Contusion of cervical cord Diagnosis: Principal ICD Code: S14.109A - Unspecified injury at unspecified level of cervical spinal cord, initial encounter Procedures : 1. C4, C5, C6 laminoplasty, allograft bone, DBM, titanium plates and screws. 2. C3 and C7 decompressive semi-laminectomy CBC/BMP: 04/08/18 0616 04/08/18 0616 Significant Findings Laboratory Tests Test 04/08/18 06:16 Red Blood Count 3.61 MIL/MM3 (4.50-5.90) Hemoglobin 12.5 GM/DL (13.0-17.0) Hematocrit 35.5 % (39.0-51.0) Mean Corpuscular Hemoglobin 34.5 PG (27.0-34.0) Neutrophils (%) (Auto) 70.4 % (16.0-70.0) Monocytes (%) (Auto) 10.2 % (0.0-8.0) Monocytes # (Auto) 1.0 TH/MM3 (0-0.9) Blood Urea Nitrogen 6 MG/DL (7-18) Calcium Level 8.3 MG/DL (8.5-10.1) PE at Discharge GENERAL: Asleep in bed but awakens to voice. Affect normal. Readily interacts. No apparent distress. SKIN: Multiple abrasions to face and hands healing w/o complication. Posterior cervical surgical incision dressing intact w/o shadowing, no erythema or streaking noted. HEENT: Normocephalic. Right forehead abrasion. Right-sided lip swelling & abrasions. NECK: In [place] J cervical collar. Posterior cervical surgical incision minimally TTP, dressing intact. MUSCULOSKELETAL: [place] spontaneously & purposefully. "[place]" feeling to 4th & 5th fingers of both hands to touch, o/w extremities NTTP. NEUROLOGICAL: Asleep but awakens to voice. Alert and orient x3 after that. Speech clear & appropriate. Follows simple commands w/o difficulty. Positive paresthesias and dysesthesia to light touch from forearm to fingertips , otherwise sensation is intact to light touch to the lower & proximal upper extremities. "[place]" feeling to 4th & 5th fingers of both hands to touch. Motor strength is 4 to 4+/5 to the bilateral hand intrinsics & abductor digit minimi bilateral, otherwise it is 5/5 to all major flexion & extension muscle groups of the extremities, to include wrist flexors & extensors. Hospital Course 04/05: The patient is a 37-year-old male presented to the emergency room in [facility] early this morning following a fall while intoxicated. He reportedly initially complained of neck pain. He was diagnosed with a C7 spinous process and lamina fracture with CT scan head negative. The patient was transferred to general surgery trauma service at [facility]. He continues to complain of burning sensation in his forearms and hands diffuse. 04/06: The patient is awake and alert in bed when seen this afternoon. He complains of a burning and "needles" sensation from the forearms down to the fingertips of both upper extremities. He states it is very painful if something brushes up against the area. He also says he is not able to use the hands to write or do anything. He denies any neck pain or any pain, numbness, tingling or weakness to the lower extremities. Upon examination he has tenderness to the lower midline cervical spine. He has pain to touch of the upper extremities. His proximal upper extremity muscle strength is strong but distal is not tested due to pain to touch. There are no sensorimotor deficits to the lower extremities. He is wearing the [place] J cervical collar. He reports that he has been able to void. 04/07/2018: C4-6 laminoplasty with C3, C7 decompressive semi-laminectomy for severe cervical stenosis with spinal cord contusion 04/08/2018: Exam significantly improved compared to preoperative. Ambulated 120 feet with physical therapy. Improvement in upper extremity hand movement and coordination with Occupational Therapy. Tolerating diet 04/09: The patient is awake and alert in bed with his girlfriend looking at a magazine and talking when seen. He is exercising the fingers with more mobility than when seen pre-operatively. He does say that he has some numbness, tingling and a little burning sensation below the elbows to the fingertips bilaterally. He does describe a "needles" like sensation to the fingers in places to touch. He also complains of an itching sensation to the hands. Upon examination he does have decreased sensation below the elbows to the fingertips. His motor strength to the hands is mildly decreased but is normal to the remainder of the extremities. 04/10: This afternoon the patient is asleep when seen but awakens to voice. He is awake and alert after that. He has some soreness to the neck. He continues to have decreased sensation from the forearms down to the fingertips bilaterally with a needle sensation to the fourth and fifth fingers of both hands. He still has some mild weakness to the hands, otherwise his motor strength is normal upon evaluation. The patient was seen up and ambulating without any difficulty on his own yesterday after he was seen. Pt Condition on Discharge: Good Discharge Disposition: Discharge Home Discharge Instructions DIET: Follow Instructions for: As Tolerated, No Restrictions ACTIVITIES You can perform: Weight Bearing As Denisa Activities to Avoid: Lifting/Bending, Strenuous Activity ADDITIONAL Activity Instructio: Wear the cervical collar at all times. It may briefly be taken off for personal hygiene. No lifting, bending, pushing, pulling or other strenuous activity. No showering until the surgical incision is totally healed. Use the flesh-coloured cervical collar when showering. Additional Information The dressing on over the surgical incision may be removed on . After taking the outer dressing off leave the steri-strips on and let them fall off on their own. No showering until the surgical incision is totally healed. Use the flesh- coloured cervical collar when showering. Take the pain medication as prescribed. Avoid taking any medication that contains NSAIDs (ibuprofen, naproxen, Motrin, Advil, Naprosyn) for at least three months. No smoking for at least three months. Follow up on Friday at 1:30 PM for a wound check. If you are unable to keep your appointment call the office at [phone] to reschedule your follow up appointment. Navneet Kirk Apr 10, 2018 13:38
[2018-04-10] MEDS ORDERED: NEUR300C PO (16:06)
== END 2018-04-10 16:20 | disposition home or self-care (01) | DRG 473 ==
LOC: NEDDLT 10:40 → N05A 10:50
PROVIDERS: ADMIT Neurological Surgery; ATTEND Neurological Surgery
PROC: 00NW0ZZ Release Cervical Spinal Cord, Open Approach (ICD-10-PCS; 2018-04-07)
PROC: 0RG20K1 Fusion of 2 or more Cervical Vertebral Joints with Nonautologous Tissue Substitute, Posterior Approach, Posterior Column, Open Approach (ICD-10-PCS; principal; 2018-04-07 07:57)
DX: S12.600A Unspecified displaced fracture of seventh cervical vertebra, initial encounter for closed fracture (principal); M48.02 Spinal stenosis, cervical region; S14.129A Central cord syndrome at unspecified level of cervical spinal cord, initial encounter; F10.129 Alcohol abuse with intoxication, unspecified; F17.210 Nicotine dependence, cigarettes, uncomplicated; R20.8 Other disturbances of skin sensation; R20.2 Paresthesia of skin; G89.29 Other chronic pain; M47.812 Spondylosis without myelopathy or radiculopathy, cervical region; Y93.55 Activity, bike riding; V19.88XA Pedal cyclist (driver) (passenger) injured in other specified transport accidents, initial encounter; W17.89XA Other fall from one level to another, initial encounter
CPT/HCPCS: 70450; 71045; 72020; 72125; 72141; 73110; 76000; 80048; 80053; 80307; 85025; 85610; 85730; 94150; 96372; C1713; J0131; J0690; J1100; J1580; J1885; J2060; J2250; J2270; J2370; J2405; J3010; J7030; J7120; L0150; L0172